=== PATIENT | female | born 1975 | race Caucasian/White ===

== ENCOUNTER 2017-01-21 21:48 | Emergency (ER) | payer OTHER ==
[~2017-01-21] VITALS: Ht 175.3 cm; Wt 107.0 kg
[~2017-01-21 21:48] MED LIST: ALPR2TAB PO; CARI350T29 PO; GABA-528 PO; LANT3I SC; METF1000 PO; NOVO3I SC
[2017-01-21 22:08] VITALS: Ht 175.3 cm; Wt 107.0 kg
[2017-01-21] MEDS ORDERED: SULF1TAB31 PO (23:44)
[2017-01-21] MEDS ORDERED: CLIN-73 PO (23:44)
--- NOTE | 2017-01-21 23:47 | ERD ---
ER Documentation Chief Complaint Chief Complaint RT FOOT DISTAL AMPUTATION ULCERATION WITH DISCHG, 2+ PITTING & REDNESS/PX HPI This is a 41-year-old female comes in the right foot this limitation ulceration with discharge. Patient says she has follow-up appointment on Friday. Patient says she does not want to be admitted. Patient states that she does not want blood work. Patient states he was simply wants antibiotics. ROS All systems reviewed and are negative except as per history of present illness. Medications Home Meds Active Scripts Sulfamethoxazole/Trimethoprim* (Bactrim Ds* Tablet) 1 Each Tablet, 1 TAB PO BID , #14 TAB Prov:TAVO JEROME. 01/21/17 Clindamycin Hcl* (Clindamycin Hcl*) 300 Mg Capsule, 300 MG PO TID for 10 Days, CAP Prov:TAVO JEROME. 01/21/17 Insulin Aspart* (Novolog Insulin Pen*) 100 Unit/Ml Soln, 11 UNIT SC WITH MEALS for 90 Days, 0 Refills Prov:CLARENCE LU MD 04/20/15 Insulin Glargine* (Lantus*) 100 Unit/Ml Soln, 45 UNIT SC HS for 90 Days, 0 Refills Prov:CLARENCE LU MD 04/17/15 Reported Medications Gabapentin* (Gabapentin*) 800 Mg Tablet, 800 MG PO QID, #90 TAB 05/11/15 Alprazolam* (Xanax*) 2 Mg Tablet, 2 MG PO Q8H Y for ANXIETY, TAB 10/24/14 Carisoprodol* (Carisoprodol*) 350 Mg Tablet, 350 MG PO BID, TAB 10/24/14 Metformin Hcl* (Metformin Hcl*) 1,000 Mg Tablet, 1000 MG PO BID, TAB 10/24/14 Allergies Allergies: Coded Allergies: No Known Allergy (Unverified , 06/27/15) PMhx/Soc History of Surgery: Yes (S/P R FOOT 1ST AND 3RD TOE OSTEOMYELITIS 09-07-15) Anesthesia Reaction: No Hx Neurological Disorder: No Hx Respiratory Disorders: No Hx Cardiac Disorders: No Hx Psychiatric Problems: No Hx Miscellaneous Medical Probl: Yes (R FOOT 1ST AND 3RD TOE OSTEOMYELITIS) Hx Alcohol Use: No Hx Substance Use: No Hx Tobacco Use: No Physical Exam Vitals Vital Signs Date Time Temp Pulse Resp B/P Pulse Ox O2 Delivery O2 Flow Rate FiO2 01/21/17 22:08 99.2 107 18 133/80 98 Physical Exam Const: [] Head: Atraumatic Eyes: Normal Conjunctiva ENT: Normal External Ears, Nose and Mouth. Neck: Full range of motion..~ No meningismus. Resp: Clear to auscultation bilaterally Cardio: Regular rate and rhythm, no murmurs Abd: Soft, non tender, non distended. Normal bowel sounds Skin: Postop site showing erythema induration and purulent drainage. Back: No midline or flank tenderness Ext: No cyanosis, or edema Neur: Awake and alert Psych: Normal Mood and Affect Procedures/MDM Assessment: 38-year-old female here with postop infection. Advised patient stay for intravenous antibiotics, however the patient that she will follow-up in 2 days with her primary care physician is requesting antibiotics. I feel this is a reasonable request at this point. Patient was started on clindamycin and Bactrim. She has been told to return for any worsening symptomatology Departure Diagnosis: Primary Impression: Foot pain Laterality: right Qualified Code: M79.671 - Right foot pain Additional Impressions: Open wound of right great toe Encounter type: initial encounter Qualified Code: S91.101A - Open wound of right great toe, initial encounter Acute osteomyelitis of right foot Condition: Stable Patient Instructions: Post Op Wound Check, Infection TAVO JEROME Jan 21, 2017 23:47
[2017-01-21 23:53] VITALS: BP 133/80; PULSE 102; RESP 18; TEMP 99.2
== END 2017-01-21 23:54 | disposition home or self-care (01) ==
LOC: E/R 21:48
DX: S91.101A Unspecified open wound of right great toe without damage to nail, initial encounter (principal); M86.9 Osteomyelitis, unspecified; X58.XXXA Exposure to other specified factors, initial encounter; Y92.9 Unspecified place or not applicable; Z79.84 Long term (current) use of oral hypoglycemic drugs; Z79.4 Long term (current) use of insulin
CPT/HCPCS: 99284

== ENCOUNTER 2017-07-08 05:38 | Day surgery (SDC) | END 2017-07-08 11:28 | disposition home or self-care (01) ==

== ENCOUNTER 2017-07-08 16:04 | Inpatient (IN) | END 2017-07-11 16:00 | disposition home or self-care (01) | DRG 920 ==

== ENCOUNTER 2017-07-17 15:19 | Emergency (ER) | END 2017-07-17 18:22 | disposition home or self-care (01) ==

== ENCOUNTER 2017-07-17 22:10 | Inpatient (IN) | END 2017-08-01 18:45 | disposition home health service (06) | DRG 908 ==

== ENCOUNTER 2018-01-09 18:52 | Emergency (ER) | END 2018-01-09 19:55 | disposition home or self-care (01) ==